=== PATIENT | female | born 1965 | race Caucasian/White ===

== ENCOUNTER → 2018-05-02 | Outpatient (CLI) | payer OTHER | END | disposition home or self-care (01) | LOC: CFH 09:25 | PROVIDERS: ATTEND Internal Medicine | DX: Z12.31 Encounter for screening mammogram for malignant neoplasm of breast (principal) | CPT/HCPCS: 77063; 77067 ==

== ENCOUNTER 2020-08-23 16:44 | Emergency (ER) | payer OTHER ==
[~2020-08-23] VITALS: Ht 157.5 cm; Wt 89.7 kg
[2020-08-23 17:43] LABS: BASOPHILS % (AUTO) 0 % (0-1); EOSINOPHILS % (AUTO) 1 % (1-7); LYMPHOCYTES % (AUTO) 5 % (22-44); MEAN CORPUSCULAR HEMOGLOBIN 29.6 pg (27.0-34.8); MEAN CORPUSCULAR HGB CONC 34.6 g/dL (32.4-35.8); MEAN PLATELET VOLUME 7.4 fL (7.4-10.4); MONOCYTES % (AUTO) 10 % (2-9); NEUTROPHILS % (AUTO) 84 % (42-75); PLATELET COUNT 359 x10^3/uL (130-400); RED BLOOD COUNT 5.13 x10^6/uL (3.82-5.3); RED CELL DISTRIBUTION WIDTH 13.4 % (9.6-15.2)
[2020-08-23 17:47] LABS: MD NO
[2020-08-23 17:54] LABS: ALBUMIN 4.1 g/dL (3.4-5.0); ANION GAP 8 mmol/L (5-15); CALCIUM 8.9 mg/dL (8.5-10.1); CHLORIDE 106 mmol/L (98-107); CREATININE 0.82 mg/dL (0.55-1.02)
--- NOTE | 2020-08-23 18:05 | NUR ---
[facility]: PT AMBULATORY TO ROOM WITH STEADY GAIT AT THIS TIME WITH INSTRUMENTATION CHEMIST FROM [facility]
--- NOTE | 2020-08-23 18:24 | NUR ---
PTS WAS +COVID SINCE SATURDAY. PT BEGAN TO FEEL SYMPTOMS TODAY. REPORTS HAVING COUGH AND FEELING FATIGUED, WITH RACING HR. DENIES V/V AND DIARRHEA. DENIES SOB AND CHEST PAIN.
[2020-08-23] MEDS ORDERED: LORazepam 1MG TABLET PO ONE (18:30)
--- NOTE | 2020-08-23 18:35 | NUR ---
PT TEMP 100.3
[2020-08-23] MEDS ORDERED: IBUPROFEN 200 MG TABLET ONE (18:52)
--- NOTE | 2020-08-23 18:58 | NUR ---
PT. MEDICATED PER MAR. DECLINES ATIVAN AT THIS TIME BUT AWARE IT'S AVAIL AND TO ASK IF SHE CHANGES HER MIND. [employer] CONTROL TECHNOLOGIST IN TO DISCUSS POC WITH PT. VS UPDATED AND HAVE IMPROVED.
[2020-08-23] MEDS ORDERED: IBUPROFEN 800 MG TABLET PO ONE (19:00)
[2020-08-23] MEDS ORDERED: LORazepam 1MG TABLET ONE (19:33)
[2020-08-23 20:15] VITALS: BP 146/74
--- NOTE | 2020-08-23 22:50 | NUR ---
LATE PHYSICAL ASSESSMENT DUE TO PT CARE
== END 2020-08-23 20:28 | disposition home or self-care (01) ==
LOC: ED 20:15
DX: U07.1 COVID-19 (principal); B34.9 Viral infection, unspecified; F41.1 Generalized anxiety disorder; R50.9 Fever, unspecified; R05 Cough; R00.0 Tachycardia, unspecified
CPT/HCPCS: 36415; 71045; 80048; 82040; 85025; 93005; 99285; U0003

== ENCOUNTER → 2020-11-25 | Outpatient (CLI) | payer OTHER | END | disposition home or self-care (01) | LOC: CFH 12:55 | PROVIDERS: ATTEND Internal Medicine | DX: N60.01 Solitary cyst of right breast (principal); N63.20 Unspecified lump in the left breast, unspecified quadrant | CPT/HCPCS: 76642; 77066 ==

== ENCOUNTER → 2020-12-20 | Outpatient (CLI) | payer OTHER ==
[~2020-12-20] MED LIST: LIDOCAINE 1%, 20ML ONE; LIDOCAINE 1%-EPI 1:100K, 20ML ONE
== END | disposition home or self-care (01) ==
LOC: CFH 08:00
PROVIDERS: ATTEND Internal Medicine
DX: N63.23 Unspecified lump in the left breast, lower outer quadrant (principal); N64.89 Other specified disorders of breast; Z80.3 Family history of malignant neoplasm of breast
CPT/HCPCS: 19083; 77065; 88305; J3490